=== PATIENT | male | born 1950 | race Caucasian/White ===

== ENCOUNTER 2017-04-19 14:18 | Inpatient (IN) | payer MEDICAID ==
[~2017-04-19] VITALS: Ht 172.7 cm; Wt 71.0 kg
[~2017-04-19 14:18] MED LIST: DIVA500T35 PO; DIVA500T52 PO; ESCI10TA PO; HYDR28.484 TP; OLAN10TA3 PO; PANT40TA25 PO; TRAZ-147 PO
[2017-04-19 14:44] VITALS: BP 141/88
[2017-04-19] MEDS ORDERED: BENZ1TAB10 PO (16:14)
[2017-04-19] MEDS ORDERED: HALO5 PO (16:14)
[2017-04-19] MEDS ORDERED: DIVA500T35 PO (16:14)
[2017-04-19] MEDS ORDERED: TRAZ-144 PO (16:14)
[2017-04-19] MEDS ORDERED: LURA40 PO (16:14)
[2017-04-19] MEDS ORDERED: BENZ2TAB10 PO (16:14)
[2017-04-19] MEDS: HALOPERIDOL 5 MG TABLET PO PRN (16:25)
[2017-04-19] MEDS: LORazepam 1 MG TABLET PO PRN (16:25)
[2017-04-19 16:36] VITALS: BP 143/82
[2017-04-19] MEDS: ZOLPIDEM TARTRATE 10 MG TABLET PO PRN (20:15)
[2017-04-19] MEDS: NICOTINE 21 MG/24 HOUR PATCH TD SCH (20:15)
[2017-04-20] VITALS (7 sets, daily range): BP systolic 114–144; BP diastolic 62–91
[2017-04-20] MEDS: HALOPERIDOL 5 MG TABLET PO PRN (00:02)
[2017-04-20] MEDS: LORazepam 1 MG TABLET PO PRN ×2 (00:02→08:24)
[2017-04-20] MEDS: DIVALPROEX SODIUM 500 MG DR TABLET PO SCH ×2 (08:23→20:57)
[2017-04-20] MEDS: HALOPERIDOL 5 MG TABLET PO SCH (08:24)
[2017-04-20] MEDS: BENZTROPINE MESYLATE 1 MG TABLET PO SCH (08:24)
[2017-04-20] MEDS: NICOTINE 21 MG/24 HOUR PATCH TD SCH (08:24)
[2017-04-20] MEDS: PANTOPRAZOLE SODIUM 40 MG DR TABLET PO SCH (08:24)
[2017-04-20] MEDS: HYDROCORTISONE 1% 30 GM OINTMENT TP SCH ×2 (08:24→16:46)
[2017-04-20] MEDS ORDERED: IBUPROFEN 600 MG TABLET PO PRN (16:45)
[2017-04-20] MEDS: ACETAMINOPHEN 325 MG TABLET PO PRN (17:05)
[2017-04-20] MEDS: TraZODone HCL 50 MG TABLET PO SCH (20:57)
[2017-04-20] MEDS: HALOPERIDOL 10 MG TABLET PO SCH (20:58)
[2017-04-20] MEDS: ZOLPIDEM TARTRATE 10 MG TABLET PO PRN (20:58)
[2017-04-20] MEDS: BENZTROPINE MESYLATE 2 MG TABLET PO SCH (20:58)
[2017-04-21 01:53] VITALS: BP 138/84
[2017-04-21] MEDS: LORazepam 1 MG TABLET PO PRN ×4 (01:53→17:23)
[2017-04-21] MEDS: HALOPERIDOL 5 MG TABLET PO PRN ×2 (01:53→12:51)
[2017-04-21] MEDS: HALOPERIDOL 5 MG TABLET PO SCH (08:12)
[2017-04-21] MEDS: BENZTROPINE MESYLATE 1 MG TABLET PO SCH (08:12)
[2017-04-21] MEDS: PANTOPRAZOLE SODIUM 40 MG DR TABLET PO SCH (08:12)
[2017-04-21] MEDS: HYDROCORTISONE 1% 30 GM OINTMENT TP SCH ×2 (08:12→17:03)
[2017-04-21] MEDS: NICOTINE 21 MG/24 HOUR PATCH TD SCH (08:12)
[2017-04-21] MEDS: DIVALPROEX SODIUM 500 MG DR TABLET PO SCH ×2 (08:12→20:28)
[2017-04-21 08:54] VITALS: BP 140/78
[2017-04-21 16:26] VITALS: BP 133/69
[2017-04-21] MEDS: BENZTROPINE MESYLATE 2 MG TABLET PO SCH (20:28)
[2017-04-21] MEDS: ZOLPIDEM TARTRATE 10 MG TABLET PO PRN (20:28)
[2017-04-21] MEDS: TraZODone HCL 50 MG TABLET PO SCH (20:28)
[2017-04-21] MEDS: HALOPERIDOL 10 MG TABLET PO SCH (20:28)
[2017-04-22 02:40] VITALS: BP 118/68
[2017-04-22] MEDS: LORazepam 1 MG TABLET PO PRN (02:52)
[2017-04-22] MEDS: HALOPERIDOL 5 MG TABLET PO PRN (02:52)
[2017-04-22] MEDS: ACETAMINOPHEN 325 MG TABLET PO PRN (02:53)
[2017-04-22 08:05] VITALS: BP 128/67
[2017-04-22 08:25] LABS: BASOPHILS # (AUTO) 0.02 K/uL (0.00-0.20); BASOPHILS % (AUTO) 0.4 % (0.0-2.0); EOSINOPHILS # (AUTO) 0.39 K/uL (0.00-0.70); EOSINOPHILS % (AUTO) 6.16 % (1.0-6.0); HEMATOCRIT 43.9 % (41-53); HEMOGLOBIN 14.5 g/dL (13.5-17.5); LYMPHOCYTES % (AUTO) 31.6 % (22.0-44.0); MEAN CORPUSCULAR HEMOGLOBIN 30.5 pg (26.0-34.0); MEAN CORPUSCULAR HGB CONC 32.9 G/dL (31.0-37.0); MEAN CORPUSCULAR VOLUME 93 fL (80-100); MONOCYTES # (AUTO) 0.6 K/uL (0.1-1.0); MONOCYTES % (AUTO) 9.4 % (2.0-9.0); NEUTROPHILS # (AUTO) 3.3 K/uL (1.8-7.7); NEUTROPHILS % (AUTO) 52.5 % (40.0-70.0); PLATELET COUNT (AUTO) 169 K/uL (150-450); RED BLOOD CELL COUNT(AUTO) 4.74 MIL/uL (4.50-5.90); RED CELL DISTRIBUTION WIDTH 13.5 % (11.5-14.5); WHITE BLOOD COUNT (AUTO) 6.4 K/uL (4.5-11.0)
[2017-04-22 08:46] LABS: ALANINE AMINOTRANSFERASE 16 U/L (12-78); ALBUMIN 3.3 g/dL (3.4-5.0); ANION GAP 9 mmol/L (8-16); ASPARTATE AMINOTRANSFERASE 13 U/L (15-37); BILIRUBIN,TOTAL 0.3 mg/dL (0.1-1.0); CARBON DIOXIDE 26 mmol/L (22-29); CHLORIDE 104 mmol/L (98-107); CREATININE 0.78 mg/dL (0.60-1.30); GLOMERULAR FILTR. RATE CALC > 60 mL/min (>60); POTASSIUM 4.3 mmol/L (3.5-5.1); SODIUM SERUM 139 mmol/L (136-145); UREA NITROGEN, BLOOD 14 mg/dL (7-18)
[2017-04-22] MEDS: NICOTINE 21 MG/24 HOUR PATCH TD SCH (09:10)
[2017-04-22] MEDS: DIVALPROEX SODIUM 500 MG DR TABLET PO SCH (09:10)
[2017-04-22] MEDS: HYDROCORTISONE 1% 30 GM OINTMENT TP SCH (09:10)
[2017-04-22] MEDS: HALOPERIDOL 5 MG TABLET PO SCH (09:10)
[2017-04-22] MEDS: BENZTROPINE MESYLATE 1 MG TABLET PO SCH (09:10)
[2017-04-22] MEDS: PANTOPRAZOLE SODIUM 40 MG DR TABLET PO SCH (09:10)
[2017-04-22] MEDS ORDERED: MUPI1OIN4 NS (12:04)
[2017-04-22] MEDS ORDERED: MUPIROCIN CALCIUM 2% 22 GM OINTMENT NASAL SCH (17:00)
== END 2017-04-22 13:30 | disposition home or self-care (01) | DRG 750 ==
LOC: B3A 15:35
PROVIDERS: ADMIT Psychiatry & Neurology Psychiatry; ATTEND Psychiatry & Neurology Child & Adolescent Psychiatry
DX: F25.1 Schizoaffective disorder, depressive type (principal); R45.851 Suicidal ideations; I10 Essential (primary) hypertension; H91.90 Unspecified hearing loss, unspecified ear; L40.9 Psoriasis, unspecified; I34.1 Nonrheumatic mitral (valve) prolapse; B19.20 Unspecified viral hepatitis C without hepatic coma; K21.9 Gastro-esophageal reflux disease without esophagitis; R32 Unspecified urinary incontinence; Z79.899 Other long term (current) drug therapy; Z88.8 Allergy status to other drugs, medicaments and biological substances; Z91.5 Personal history of self-harm
CPT/HCPCS: 87081

== ENCOUNTER 2017-05-05 11:53 | Inpatient (IN) | payer MEDICAID, OTHER ==
[~2017-05-05] VITALS: Ht 175.3 cm; Wt 71.6 kg
[~2017-05-05 11:53] MED LIST changes: +BENZ1TAB10 PO; +BENZ2TAB10 PO; -DIVA500T52 PO; -ESCI10TA PO; +HALO5 PO; -HYDR28.484 TP; +MUPI1OIN4 NS; -OLAN10TA3 PO; -PANT40TA25 PO; +TRAZ-144 PO; -TRAZ-147 PO
[2017-05-05] MEDS ORDERED: ZOLPIDEM TARTRATE 10 MG TABLET PO PRN (12:30)
[2017-05-05 12:31] LABS: BASOPHILS % (AUTO) 0.4 % (0.0-2.0); EOSINOPHILS % (AUTO) 4.6 % (1.0-6.0); HEMATOCRIT 39.4 % (41-53); HEMOGLOBIN 13.8 g/dL (13.5-17.5); LYMPHOCYTES # (AUTO) 1.7 K/uL (1.0-4.8); LYMPHOCYTES % (AUTO) 24.2 % (22.0-44.0); MEAN CORPUSCULAR HEMOGLOBIN 31.4 pg (26.0-34.0); MEAN CORPUSCULAR VOLUME 90 fL (80-100); MONOCYTES # (AUTO) 0.6 K/uL (0.1-1.0); MONOCYTES % (AUTO) 8.4 % (2.0-9.0); NEUTROPHILS # (AUTO) 4.4 K/uL (1.8-7.7); NEUTROPHILS % (AUTO) 62.4 % (40.0-70.0); PLATELET COUNT (AUTO) 164 K/uL (150-450); RED CELL DISTRIBUTION WIDTH 13.2 % (11.5-14.5)
[2017-05-05 12:40] LABS: ANION GAP 9 mmol/L (8-16); CALCIUM, TOTAL 8.8 mg/dL (8.8-10.5); CARBON DIOXIDE 25 mmol/L (22-29); CHLORIDE 100 mmol/L (98-107); CREATININE 0.94 mg/dL (0.60-1.30); GLOMERULAR FILTR. RATE CALC > 60 mL/min (>60); POTASSIUM 4.1 mmol/L (3.5-5.1); SODIUM SERUM 134 mmol/L (136-145); UREA NITROGEN, BLOOD 12 mg/dL (7-18)
[2017-05-05 12:48] LABS: ALANINE AMINOTRANSFERASE 18 U/L (12-78); ALBUMIN 3.3 g/dL (3.4-5.0); ASPARTATE AMINOTRANSFERASE 13 U/L (15-37); BILIRUBIN,TOTAL 0.3 mg/dL (0.1-1.0); TOTAL PROTEIN, SERUM 7.2 g/dL (6.4-8.2); VALPROIC ACID 64 mcg/mL (50-100)
[2017-05-05] MEDS: LORazepam 2 MG TABLET PO PRN (13:05)
[2017-05-05 14:34] VITALS: BP 147/83
[2017-05-05] MEDS: NICOTINE 21 MG/24 HOUR PATCH TD SCH (16:43)
[2017-05-05] MEDS: HALOPERIDOL 5 MG TABLET PO PRN (17:35)
[2017-05-05] MEDS: BENZTROPINE MESYLATE 2 MG TABLET PO SCH (20:02)
[2017-05-05] MEDS: DIVALPROEX SODIUM 500 MG DR TABLET PO SCH (20:02)
[2017-05-05] MEDS: TraZODone HCL 50 MG TABLET PO SCH (20:03)
[2017-05-05] MEDS: HALOPERIDOL 10 MG TABLET PO SCH (20:04)
[2017-05-05 20:11] VITALS: BP 120/64
[2017-05-06] MEDS: DIVALPROEX SODIUM 500 MG DR TABLET PO SCH ×2 (08:20→22:03)
[2017-05-06] MEDS: BENZTROPINE MESYLATE 1 MG TABLET PO SCH (08:20)
[2017-05-06] MEDS: HALOPERIDOL 5 MG TABLET PO SCH (08:20)
[2017-05-06] MEDS: NICOTINE 21 MG/24 HOUR PATCH TD SCH (08:21)
[2017-05-06] MEDS: LORazepam 2 MG TABLET PO PRN ×2 (08:21→14:15)
[2017-05-06 10:41] VITALS: BP 127/71
[2017-05-06] MEDS ORDERED: DiphenhydrAMINE HCL 50 MG/ML VIAL IM ONE (15:15)
[2017-05-06] MEDS ORDERED: LORazepam 2 MG/ML VIAL IM ONE (15:15)
[2017-05-06] MEDS ORDERED: HALOPERIDOL LACTATE 5 MG/ML VIAL IM ONE (15:15)
[2017-05-06 15:19] VITALS: BP 137/91
[2017-05-06] MEDS: BENZTROPINE MESYLATE 2 MG TABLET PO SCH (22:03)
[2017-05-06] MEDS: TraZODone HCL 50 MG TABLET PO SCH (22:03)
[2017-05-06] MEDS: HALOPERIDOL 10 MG TABLET PO SCH (22:03)
[2017-05-07] MEDS: HALOPERIDOL 5 MG TABLET PO SCH (08:31)
[2017-05-07] MEDS: BENZTROPINE MESYLATE 1 MG TABLET PO SCH (08:31)
[2017-05-07] MEDS: NICOTINE 21 MG/24 HOUR PATCH TD SCH (08:32)
[2017-05-07] MEDS: DIVALPROEX SODIUM 500 MG DR TABLET PO SCH ×2 (08:32→21:22)
[2017-05-07] MEDS: LORazepam 2 MG TABLET PO PRN ×2 (08:33→16:27)
[2017-05-07 08:40] VITALS: BP 149/69
[2017-05-07] MEDS ORDERED: ACETAMINOPHEN 325 MG TABLET ONE (11:43)
[2017-05-07] MEDS ORDERED: ACETAMINOPHEN 325 MG TABLET PO PRN (13:00)
[2017-05-07] MEDS: HALOPERIDOL 5 MG TABLET PO PRN (16:27)
[2017-05-07 16:41] VITALS: BP 143/66
[2017-05-07] MEDS: HALOPERIDOL 10 MG TABLET PO SCH (21:22)
[2017-05-07] MEDS: TraZODone HCL 50 MG TABLET PO SCH (21:22)
[2017-05-07] MEDS: BENZTROPINE MESYLATE 2 MG TABLET PO SCH (21:29)
[2017-05-08 06:16] VITALS: BP 138/79
[2017-05-08 08:30] VITALS: BP 146/86
[2017-05-08] MEDS: BENZTROPINE MESYLATE 1 MG TABLET PO SCH (09:41)
[2017-05-08] MEDS: DIVALPROEX SODIUM 500 MG DR TABLET PO SCH (09:41)
[2017-05-08] MEDS: HALOPERIDOL 5 MG TABLET PO SCH (09:41)
[2017-05-08] MEDS: NICOTINE 21 MG/24 HOUR PATCH TD SCH (09:42)
[2017-05-08] MEDS: LORazepam 2 MG TABLET PO PRN (09:43)
[2017-05-08 16:39] VITALS: BP 155/88
[2017-05-08] MEDS ORDERED: HALO5 PO ×2 (17:11)
== END 2017-05-08 18:40 | disposition home or self-care (01) | DRG 750 ==
LOC: EMS 11:55 → AHU 13:26 → 3EI 05-06 16:00
PROVIDERS: ADMIT Psychiatry & Neurology Psychiatry; ATTEND Psychiatry & Neurology Child & Adolescent Psychiatry
DX: F25.1 Schizoaffective disorder, depressive type (principal); R45.851 Suicidal ideations; I10 Essential (primary) hypertension; B19.20 Unspecified viral hepatitis C without hepatic coma; F17.200 Nicotine dependence, unspecified, uncomplicated; F41.9 Anxiety disorder, unspecified; K21.9 Gastro-esophageal reflux disease without esophagitis; Z88.8 Allergy status to other drugs, medicaments and biological substances
CPT/HCPCS: 87081; 96372; 99285; G0480; J1200; J1630; J2060

== ENCOUNTER 2017-05-22 15:28 | Emergency (ER) | payer MEDICAID, OTHER ==
[~2017-05-22] VITALS: Ht 175.3 cm; Wt 72.7 kg
[~2017-05-22 15:28] MED LIST changes: -MUPI1OIN4 NS
[2017-05-22 17:23] LABS: BASOPHILS # (AUTO) 0.06 K/uL (0.00-0.20); BASOPHILS % (AUTO) 0.8 % (0.0-2.0); EOSINOPHILS # (AUTO) 0.44 K/uL (0.00-0.70); EOSINOPHILS % (AUTO) 6.04 % (1.0-6.0); HEMATOCRIT 42.3 % (41-53); HEMOGLOBIN 14.1 g/dL (13.5-17.5); LYMPHOCYTES # (AUTO) 2.2 K/uL (1.0-4.8); LYMPHOCYTES % (AUTO) 29.8 % (22.0-44.0); MEAN CORPUSCULAR HEMOGLOBIN 30.9 pg (26.0-34.0); MEAN CORPUSCULAR HGB CONC 33.3 G/dL (31.0-37.0); MEAN CORPUSCULAR VOLUME 93 fL (80-100); MONOCYTES # (AUTO) 0.5 K/uL (0.1-1.0); MONOCYTES % (AUTO) 7.1 % (2.0-9.0); NEUTROPHILS # (AUTO) 4.1 K/uL (1.8-7.7); NEUTROPHILS % (AUTO) 56.3 % (40.0-70.0); PLATELET COUNT (AUTO) 160 K/uL (150-450); RED BLOOD CELL COUNT(AUTO) 4.56 MIL/uL (4.50-5.90); RED CELL DISTRIBUTION WIDTH 13.7 % (11.5-14.5)
[2017-05-22 17:40] LABS: ANION GAP 7 mmol/L (8-16); CALCIUM, TOTAL 8.9 mg/dL (8.8-10.5); CARBON DIOXIDE 25 mmol/L (22-29); CHLORIDE 100 mmol/L (98-107); CREATININE 0.82 mg/dL (0.60-1.30); GLOMERULAR FILTR. RATE CALC > 60 mL/min (>60); GLUCOSE,RANDOM 78 mg/dL (70-110); POTASSIUM 3.8 mmol/L (3.5-5.1); SODIUM SERUM 132 mmol/L (136-145); UREA NITROGEN, BLOOD 8 mg/dL (7-18)
[2017-05-22 17:41] LABS: AMPHET/METH SCREEN,URINE NEGATIVE (NEGATIVE); BARBITURATE SCREEN, URINE NEGATIVE (NEGATIVE); BENZODIAZEPINES SCREEN,URINE NEGATIVE (NEGATIVE); CANNABINOID SCREEN,URINE NEGATIVE (NEGATIVE); COCAINE SCREEN,URINE NEGATIVE (NEGATIVE); METHADONE SCREEN, URINE NEGATIVE (NEGATIVE); OPIATE SCREEN,URINE NEGATIVE (NEGATIVE)
[2017-05-22 17:44] LABS: PHENCYCLIDINE SCREEN,URINE NEGATIVE (NEGATIVE)
[2017-05-22 17:46] LABS: ALANINE AMINOTRANSFERASE 17 U/L (12-78); ALBUMIN 3.5 g/dL (3.4-5.0); ALKALINE PHOSPHATASE 48 U/L (46-116); ASPARTATE AMINOTRANSFERASE 16 U/L (15-37); BILIRUBIN,TOTAL 0.3 mg/dL (0.1-1.0); TOTAL PROTEIN, SERUM 7.5 g/dL (6.4-8.2)
[2017-05-22 18:52] LABS: ACETAMINOPHEN < 2 mcg/mL (10-30)
[2017-05-22 19:20] VITALS: BP 151/64
[2017-05-22] MEDS ORDERED: ACETAMINOPHEN 500 MG TABLET PO ONE (19:30)
== END 2017-05-22 20:07 | disposition home or self-care (01) ==
LOC: EMS 15:36
DX: F20.9 Schizophrenia, unspecified (principal); R45.851 Suicidal ideations; K21.9 Gastro-esophageal reflux disease without esophagitis; I10 Essential (primary) hypertension; L40.9 Psoriasis, unspecified; F17.210 Nicotine dependence, cigarettes, uncomplicated
CPT/HCPCS: 36415; 80053; 80307; 85025; 99285; G0480 ×2; G0481

== ENCOUNTER 2017-06-01 10:18 | Emergency (ER) | payer OTHER ==
[~2017-06-01] VITALS: Ht 175.3 cm; Wt 71.8 kg
[2017-06-01 10:36] VITALS: BP 138/82
[2017-06-01 10:57] LABS: BASOPHILS % (AUTO) 0.4 % (0.0-2.0); EOSINOPHILS % (AUTO) 4.9 % (1.0-6.0); HEMATOCRIT 40.1 % (41-53); LYMPHOCYTES # (AUTO) 1.6 K/uL (1.0-4.8); LYMPHOCYTES % (AUTO) 24.8 % (22.0-44.0); MEAN CORPUSCULAR HEMOGLOBIN 31.5 pg (26.0-34.0); MEAN CORPUSCULAR HGB CONC 34.9 G/dL (31.0-37.0); MEAN CORPUSCULAR VOLUME 90 fL (80-100); MONOCYTES # (AUTO) 0.4 K/uL (0.1-1.0); MONOCYTES % (AUTO) 6.1 % (2.0-9.0); NEUTROPHILS % (AUTO) 63.8 % (40.0-70.0); PLATELET COUNT (AUTO) 156 K/uL (150-450); RED BLOOD CELL COUNT(AUTO) 4.44 MIL/uL (4.50-5.90); RED CELL DISTRIBUTION WIDTH 13.3 % (11.5-14.5)
[2017-06-01 11:13] LABS: AMPHET/METH SCREEN,URINE NEGATIVE (NEGATIVE); BARBITURATE SCREEN, URINE NEGATIVE (NEGATIVE); BENZODIAZEPINES SCREEN,URINE NEGATIVE (NEGATIVE); CANNABINOID SCREEN,URINE NEGATIVE (NEGATIVE); COCAINE SCREEN,URINE NEGATIVE (NEGATIVE); METHADONE SCREEN, URINE NEGATIVE (NEGATIVE); OPIATE SCREEN,URINE NEGATIVE (NEGATIVE)
[2017-06-01 11:14] LABS: PHENCYCLIDINE SCREEN,URINE NEGATIVE (NEGATIVE)
[2017-06-01 11:15] LABS: ALANINE AMINOTRANSFERASE 18 U/L (12-78); ALBUMIN 3.4 g/dL (3.4-5.0); ALKALINE PHOSPHATASE 56 U/L (46-116); ASPARTATE AMINOTRANSFERASE 16 U/L (15-37); BILIRUBIN,TOTAL 0.3 mg/dL (0.1-1.0); CALCIUM, TOTAL 8.7 mg/dL (8.8-10.5); CREATININE 0.86 mg/dL (0.60-1.30); GLOMERULAR FILTR. RATE CALC > 60 mL/min (>60); GLUCOSE,RANDOM 89 mg/dL (70-110); TOTAL PROTEIN, SERUM 7.4 g/dL (6.4-8.2); UREA NITROGEN, BLOOD 8 mg/dL (7-18); VALPROIC ACID 37 mcg/mL (50-100)
[2017-06-01 11:23] LABS: ANION GAP 10 mmol/L (8-16); CARBON DIOXIDE 25 mmol/L (22-29); CHLORIDE 98 mmol/L (98-107); SODIUM SERUM 133 mmol/L (136-145)
[2017-06-01] MEDS ORDERED: ACETAMINOPHEN 500 MG TABLET PO ONE (12:00)
[2017-06-01] MEDS ORDERED: HALO10 PO (12:04)
== END 2017-06-01 12:19 | disposition home or self-care (01) ==
LOC: EMS 10:20
DX: F20.9 Schizophrenia, unspecified (principal); F31.9 Bipolar disorder, unspecified; F10.20 Alcohol dependence, uncomplicated; Y90.0 Blood alcohol level of less than 20 mg/100 ml; K21.9 Gastro-esophageal reflux disease without esophagitis; F17.210 Nicotine dependence, cigarettes, uncomplicated; Z79.899 Other long term (current) drug therapy
CPT/HCPCS: 36415; 80053; 80164; 80307; 85025; 99285; G0480

== ENCOUNTER 2017-07-05 13:42 | Emergency (ER) | payer OTHER ==
[~2017-07-05] VITALS: Ht 172.7 cm; Wt 71.8 kg
[~2017-07-05 13:42] MED LIST changes: +HALO10 PO
[2017-07-05 17:33] VITALS: BP 144/88
== END 2017-07-05 18:42 | disposition home or self-care (01) ==
LOC: EMS 13:43 → EEVIPCON 13:43 → EMS 18:42
DX: F20.9 Schizophrenia, unspecified (principal); R45.851 Suicidal ideations; I10 Essential (primary) hypertension; K21.9 Gastro-esophageal reflux disease without esophagitis; F17.210 Nicotine dependence, cigarettes, uncomplicated; Z88.8 Allergy status to other drugs, medicaments and biological substances
CPT/HCPCS: 99285

== ENCOUNTER 2017-11-28 17:00 | Inpatient (IN) | payer MEDICARE, MEDICAID ==
[~2017-11-28] VITALS: Ht 175.3 cm; Wt 64.5 kg
[~2017-11-28 17:00] MED LIST changes: +DIVA-78 PO; -DIVA500T35 PO; -HALO5 PO; +HALO5TAB2 PO; -TRAZ-144 PO; +TRAZ-219 PO
[2017-11-28] MEDS ORDERED: ZOLPIDEM TARTRATE 10 MG TABLET PO PRN (18:00)
[2017-11-28] MEDS ORDERED: HALOPERIDOL 5 MG TABLET PO PRN (18:00)
[2017-11-28 19:55] VITALS: BP 139/85
[2017-11-28] MEDS ORDERED: ACETAMINOPHEN 325 MG TABLET PO PRN (20:30)
[2017-11-28] MEDS ORDERED: DOCUSATE SODIUM 100 MG CAPSULE PO PRN (20:30)
[2017-11-28] MEDS ORDERED: IBUPROFEN 400 MG TABLET PO PRN (20:30)
[2017-11-29 02:03] VITALS: BP 162/95
[2017-11-29] MEDS: LORazepam 2 MG TABLET PO PRN (02:13)
[2017-11-29 06:33] LABS: BASOPHILS % (AUTO) 0.6 % (0.0-2.0); HEMATOCRIT 41.6 % (41-53); HEMOGLOBIN 14.5 g/dL (13.5-17.5); LYMPHOCYTES % (AUTO) 28.4 % (22.0-44.0); MEAN CORPUSCULAR HEMOGLOBIN 31.3 pg (26.0-34.0); MEAN CORPUSCULAR HGB CONC 34.9 G/dL (31.0-37.0); MEAN CORPUSCULAR VOLUME 90 fL (80-100); MONOCYTES # (AUTO) 0.6 K/uL (0.1-1.0); MONOCYTES % (AUTO) 9.2 % (2.0-9.0); NEUTROPHILS # (AUTO) 3.9 K/uL (1.8-7.7); NEUTROPHILS % (AUTO) 55.8 % (40.0-70.0); PLATELET COUNT (AUTO) 201 K/uL (150-450); RED BLOOD CELL COUNT(AUTO) 4.63 MIL/uL (4.50-5.90); RED CELL DISTRIBUTION WIDTH 13.9 % (11.5-14.5)
[2017-11-29 06:55] LABS: ALANINE AMINOTRANSFERASE 20 U/L (12-78); ALBUMIN 3.6 g/dL (3.4-5.0); ALKALINE PHOSPHATASE 54 U/L (46-116); ANION GAP 8 mmol/L (8-16); ASPARTATE AMINOTRANSFERASE 16 U/L (15-37); BILIRUBIN,TOTAL 0.3 mg/dL (0.1-1.0); CALCIUM, TOTAL 8.7 mg/dL (8.8-10.5); CARBON DIOXIDE 28 mmol/L (22-29); CHLORIDE 100 mmol/L (98-107); CHOL/HDL RATIO 2.8 (4.2-7.3); CHOLESTEROL 146 mg/dL (131-200); GLOMERULAR FILTR. RATE CALC > 60 mL/min (>60); GLUCOSE,RANDOM 86 mg/dL (70-110); HDL CHOLESTEROL 52 mg/dL (40-60); LDL CHOL (CALC.) 83 mg/dL (0-130); POTASSIUM 4.4 mmol/L (3.5-5.1); SODIUM SERUM 136 mmol/L (136-145); TOTAL PROTEIN, SERUM 7.5 g/dL (6.4-8.2); TRIGLYCERIDES 57 mg/dL (15-150); UREA NITROGEN, BLOOD 21 mg/dL (7-18)
[2017-11-29 08:46] VITALS: BP 159/98
[2017-11-29] MEDS ORDERED: NICOTINE 21 MG/24 HOUR PATCH TD SCH (09:00)
[2017-11-29] MEDS ORDERED: CloNIDine HCL 0.1 MG TABLET PO PRN (10:45)
[2017-11-29] MEDS ORDERED: DOCUSATE SODIUM 100 MG CAPSULE PO PRN (10:45)
[2017-11-29] MEDS ORDERED: PETROLATUM,WHITE 71 GM JELLY TP PRN (10:45)
[2017-11-29] MEDS ORDERED: ALBUTEROL SULFATE HFA 90 MCG/PUFF 8 GM INHALER IH PRN (10:45)
[2017-11-29] MEDS ORDERED: ONDANSETRON HCL 4 MG TABLET PO PRN (10:45)
[2017-11-29] MEDS ORDERED: LOPERAMIDE HCL 2 MG CAPSULE PO PRN (10:45)
[2017-11-29] MEDS ORDERED: MAG HYDROX/AL HYDROX/SIMETH ES 30 ML SUSPENSION UDCUP PO PRN (10:45)
[2017-11-29] MEDS ORDERED: ACETAMINOPHEN 325 MG TABLET PO PRN (10:45)
[2017-11-29] MEDS: HYDROCORTISONE 1% 30 GM OINTMENT TP SCH ×2 (10:45→20:06)
[2017-11-29] MEDS ORDERED: MAGNESIUM HYDROXIDE SUSPENSION 30 ML UDCUP PO PRN (10:45)
[2017-11-29] MEDS: AmLODIPine BESYLATE 5 MG TABLET PO SCH (11:46)
[2017-11-29] MEDS: IBUPROFEN 400 MG TABLET PO PRN (12:48)
[2017-11-29] MEDS: DIVALPROEX SODIUM 500 MG ER TABLET PO SCH (16:16)
[2017-11-29] MEDS: BENZTROPINE MESYLATE 2 MG TABLET PO SCH (16:16)
[2017-11-29 19:08] VITALS: BP 146/84
[2017-11-29] MEDS: HALOPERIDOL 10 MG TABLET PO SCH (20:06)
[2017-11-29] MEDS: TraZODone HCL 150 MG TABLET PO SCH (20:06)
[2017-11-30 08:30] VITALS: BP 134/82
[2017-11-30] MEDS: NICOTINE 14 MG/24 HOUR PATCH TD SCH (08:56)
[2017-11-30] MEDS: AmLODIPine BESYLATE 5 MG TABLET PO SCH (08:57)
[2017-11-30] MEDS: BENZTROPINE MESYLATE 2 MG TABLET PO SCH ×2 (08:57→16:00)
[2017-11-30] MEDS: HYDROCORTISONE 1% 30 GM OINTMENT TP SCH ×2 (08:57→16:00)
[2017-11-30] MEDS: DIVALPROEX SODIUM 500 MG ER TABLET PO SCH ×2 (08:57→16:00)
[2017-11-30] MEDS: HALOPERIDOL 5 MG TABLET PO SCH (08:57)
[2017-11-30] MEDS: LORazepam 2 MG TABLET PO PRN ×2 (11:03→17:11)
[2017-11-30 19:36] VITALS: BP 144/76
[2017-11-30] MEDS: HALOPERIDOL 10 MG TABLET PO SCH (20:23)
[2017-11-30] MEDS: TraZODone HCL 150 MG TABLET PO SCH (20:23)
[2017-12-01 08:45] VITALS: BP 144/69
[2017-12-01] MEDS: DIVALPROEX SODIUM 500 MG ER TABLET PO SCH ×2 (09:54→16:11)
[2017-12-01] MEDS: HALOPERIDOL 5 MG TABLET PO SCH (09:55)
[2017-12-01] MEDS: BENZTROPINE MESYLATE 2 MG TABLET PO SCH ×2 (09:55→16:11)
[2017-12-01] MEDS: AmLODIPine BESYLATE 5 MG TABLET PO SCH (09:55)
[2017-12-01] MEDS: HYDROCORTISONE 1% 30 GM OINTMENT TP SCH ×2 (09:56→16:11)
[2017-12-01] MEDS: NICOTINE 14 MG/24 HOUR PATCH TD SCH (09:57)
[2017-12-01] MEDS: LORazepam 2 MG TABLET PO PRN (13:00)
[2017-12-01 17:00] VITALS: BP 140/68
[2017-12-01] MEDS: TraZODone HCL 150 MG TABLET PO SCH (20:10)
[2017-12-01] MEDS: HALOPERIDOL 10 MG TABLET PO SCH (20:10)
[2017-12-02 09:00] VITALS: BP 137/78
[2017-12-02] MEDS: HALOPERIDOL 5 MG TABLET PO SCH (09:02)
[2017-12-02] MEDS: DIVALPROEX SODIUM 500 MG ER TABLET PO SCH ×2 (09:02→16:54)
[2017-12-02] MEDS: NICOTINE 14 MG/24 HOUR PATCH TD SCH (09:03)
[2017-12-02] MEDS: HYDROCORTISONE 1% 30 GM OINTMENT TP SCH ×2 (09:03→16:54)
[2017-12-02] MEDS: AmLODIPine BESYLATE 5 MG TABLET PO SCH (09:03)
[2017-12-02] MEDS: BENZTROPINE MESYLATE 2 MG TABLET PO SCH ×2 (09:04→16:54)
[2017-12-02 14:27] VITALS: BP 143/84
[2017-12-02] MEDS: IBUPROFEN 400 MG TABLET PO PRN (14:27)
[2017-12-02 16:40] VITALS: BP 156/108
[2017-12-02] MEDS: TraZODone HCL 150 MG TABLET PO SCH (20:29)
[2017-12-02] MEDS: HALOPERIDOL 10 MG TABLET PO SCH (20:30)
[2017-12-03] MEDS: HALOPERIDOL 5 MG TABLET PO SCH (08:46)
[2017-12-03] MEDS: DIVALPROEX SODIUM 500 MG ER TABLET PO SCH (08:46)
[2017-12-03] MEDS: AmLODIPine BESYLATE 5 MG TABLET PO SCH (08:46)
[2017-12-03] MEDS: BENZTROPINE MESYLATE 2 MG TABLET PO SCH (08:46)
[2017-12-03] MEDS: NICOTINE 14 MG/24 HOUR PATCH TD SCH (08:47)
[2017-12-03] MEDS: HYDROCORTISONE 1% 30 GM OINTMENT TP SCH (08:47)
[2017-12-03 08:49] VITALS: BP 138/73
[2017-12-03] MEDS ORDERED: TRAZ150 PO (10:07)
[2017-12-03] MEDS ORDERED: AMLO-511 PO (10:13)
[2017-12-03] MEDS ORDERED: HYDR28.45 TP (10:14)
== END 2017-12-03 11:55 | disposition home or self-care (01) | DRG 885 ==
LOC: 3EX 17:00
PROVIDERS: ADMIT Psychiatry & Neurology Psychiatry; ATTEND Psychiatry & Neurology Psychiatry
DX: F20.0 Paranoid schizophrenia (principal); R45.851 Suicidal ideations; I10 Essential (primary) hypertension; K21.9 Gastro-esophageal reflux disease without esophagitis; L40.9 Psoriasis, unspecified; R32 Unspecified urinary incontinence; F17.200 Nicotine dependence, unspecified, uncomplicated; R45.87 Impulsiveness; F10.10 Alcohol abuse, uncomplicated; Y90.9 Presence of alcohol in blood, level not specified; Z91.5 Personal history of self-harm; Z71.6 Tobacco abuse counseling
CPT/HCPCS: 83036; 84443; 87081

== ENCOUNTER 2018-02-08 15:36 | Inpatient (IN) | payer MEDICARE, MEDICAID ==
[~2018-02-08] VITALS: Ht 175.3 cm; Wt 63.2 kg
[~2018-02-08 15:36] MED LIST changes: -BENZ1TAB10 PO; +HYDR28.45 TP; -TRAZ-219 PO; +TRAZ150 PO
[2018-02-08 16:39] LABS: BASOPHILS % (AUTO) 0.6 % (0.0-2.0); EOSINOPHILS % (AUTO) 4.5 % (1.0-6.0); HEMOGLOBIN 13.2 g/dL (13.5-17.5); LYMPHOCYTES # (AUTO) 2.3 K/uL (1.0-4.8); LYMPHOCYTES % (AUTO) 33.3 % (22.0-44.0); MEAN CORPUSCULAR HEMOGLOBIN 31.6 pg (26.0-34.0); MEAN CORPUSCULAR HGB CONC 34.7 G/dL (31.0-37.0); MEAN CORPUSCULAR VOLUME 91 fL (80-100); MONOCYTES # (AUTO) 0.6 K/uL (0.1-1.0); MONOCYTES % (AUTO) 8.9 % (2.0-9.0); NEUTROPHILS # (AUTO) 3.6 K/uL (1.8-7.7); NEUTROPHILS % (AUTO) 52.7 % (40.0-70.0); PLATELET COUNT (AUTO) 184 K/uL (150-450); RED BLOOD CELL COUNT(AUTO) 4.18 MIL/uL (4.50-5.90); RED CELL DISTRIBUTION WIDTH 13.5 % (11.5-14.5)
[2018-02-08 16:48] LABS: ANION GAP 9 mmol/L (8-16); CALCIUM, TOTAL 8.6 mg/dL (8.8-10.5); CARBON DIOXIDE 25 mmol/L (22-29); CHLORIDE 99 mmol/L (98-107); CREATININE 0.71 mg/dL (0.60-1.30); GLOMERULAR FILTR. RATE CALC > 60 mL/min (>60); GLUCOSE,RANDOM 83 mg/dL (70-110); SODIUM SERUM 133 mmol/L (136-145); UREA NITROGEN, BLOOD 8 mg/dL (7-18)
[2018-02-08 16:54] LABS: ALANINE AMINOTRANSFERASE 17 U/L (12-78); ALBUMIN 3.3 g/dL (3.4-5.0); ALKALINE PHOSPHATASE 53 U/L (46-116); ASPARTATE AMINOTRANSFERASE 12 U/L (15-37); BILIRUBIN,TOTAL 0.3 mg/dL (0.1-1.0); VALPROIC ACID 27 mcg/mL (50-100)
[2018-02-08] MEDS ORDERED: HALOPERIDOL 5 MG TABLET PO PRN (19:15)
[2018-02-08] MEDS ORDERED: ACETAMINOPHEN 500 MG TABLET ONE (22:05)
[2018-02-08 23:30] VITALS: BP 141/81
[2018-02-09 00:01] VITALS: BP 157/88
[2018-02-09] MEDS: ZOLPIDEM TARTRATE 10 MG TABLET PO PRN ×2 (00:04→21:36)
[2018-02-09] MEDS: LORazepam 2 MG TABLET PO PRN ×2 (00:05→10:08)
[2018-02-09 09:00] VITALS: BP 130/63
[2018-02-09] MEDS: NICOTINE 14 MG/24 HOUR PATCH TD SCH ×2 (09:00→15:00)
[2018-02-09] MEDS ORDERED: GuaiFENesin/D-METHORPHAN [SUGAR-FREE] 200-20MG/10 ML SYRUP UDCUP PO PRN (11:00)
[2018-02-09] MEDS ORDERED: IBUPROFEN 400 MG TABLET PO PRN (11:00)
[2018-02-09] MEDS ORDERED: PETROLATUM,WHITE 71 GM JELLY TP PRN (11:00)
[2018-02-09] MEDS ORDERED: CloNIDine HCL 0.1 MG TABLET PO PRN (11:00)
[2018-02-09] MEDS ORDERED: ONDANSETRON HCL 4 MG TABLET PO PRN (11:00)
[2018-02-09] MEDS ORDERED: ALBUTEROL SULFATE HFA 90 MCG/PUFF 8 GM INHALER IH PRN (11:00)
[2018-02-09] MEDS ORDERED: NICOTINE 14 MG/24 HOUR PATCH TD PRN (11:00)
[2018-02-09] MEDS ORDERED: DOCUSATE SODIUM 100 MG CAPSULE PO PRN (11:00)
[2018-02-09] MEDS ORDERED: MAG HYDROX/AL HYDROX/SIMETH ES 30 ML SUSPENSION UDCUP PO PRN (11:00)
[2018-02-09] MEDS ORDERED: LOPERAMIDE HCL 2 MG CAPSULE PO PRN (11:00)
[2018-02-09] MEDS: ACETAMINOPHEN 325 MG TABLET PO PRN (15:00)
[2018-02-09] MEDS: HYDROCORTISONE 1% 30 GM CREAM TP SCH (16:41)
[2018-02-09] MEDS: DIVALPROEX SODIUM 500 MG DR TABLET PO SCH (20:24)
[2018-02-09] MEDS ORDERED: HALOPERIDOL 5 MG TABLET PO SCH (21:00)
[2018-02-09] MEDS ORDERED: BENZTROPINE MESYLATE 1 MG TABLET PO SCH (21:00)
[2018-02-10 00:25] VITALS: BP 135/79
[2018-02-10] MEDS: LORazepam 2 MG TABLET PO PRN ×3 (00:29→20:52)
[2018-02-10] MEDS ORDERED: MAGNESIUM CITRATE 300 ML ORAL SOLUTION PO PRN (05:00)
[2018-02-10 07:02] LABS: HEMOGLOBIN A1C 4.7 % (4.5-6.2)
[2018-02-10 07:09] LABS: CHOL/HDL RATIO 2.8 (4.2-7.3)
[2018-02-10 07:29] LABS: THYROID STIMULATING HORMONE 1.37 uIU/mL (0.36-3.74)
[2018-02-10 08:30] VITALS: BP 139/80
[2018-02-10] MEDS: OMEPRAZOLE 20 MG CAPSULE PO SCH (08:55)
[2018-02-10] MEDS: HYDROCORTISONE 1% 30 GM CREAM TP SCH ×2 (08:56→17:02)
[2018-02-10 09:50] VITALS: BP 145/88
[2018-02-10] MEDS: NICOTINE 14 MG/24 HOUR PATCH TD SCH (09:52)
[2018-02-10] MEDS: ACETAMINOPHEN 325 MG TABLET PO PRN (09:59)
[2018-02-10 11:00] VITALS: BP 140/90
[2018-02-10] MEDS: BENZTROPINE MESYLATE 1 MG TABLET PO SCH (20:50)
[2018-02-10] MEDS: HALOPERIDOL 10 MG TABLET PO SCH (20:50)
[2018-02-10] MEDS: DIVALPROEX SODIUM 500 MG DR TABLET PO SCH (20:51)
[2018-02-10] MEDS: TraZODone HCL 150 MG TABLET PO SCH (20:51)
[2018-02-10 23:03] VITALS: BP 133/65
[2018-02-11 00:30] VITALS: BP 139/86
[2018-02-11] MEDS: ZOLPIDEM TARTRATE 10 MG TABLET PO PRN (00:37)
[2018-02-11 08:15] VITALS: BP 116/69
[2018-02-11] MEDS: BENZTROPINE MESYLATE 1 MG TABLET PO SCH ×2 (08:53→20:04)
[2018-02-11] MEDS: HALOPERIDOL 5 MG TABLET PO SCH (08:54)
[2018-02-11] MEDS: OMEPRAZOLE 20 MG CAPSULE PO SCH (08:55)
[2018-02-11] MEDS: HYDROCORTISONE 1% 30 GM CREAM TP SCH ×2 (09:00→17:00)
[2018-02-11] MEDS: NICOTINE 14 MG/24 HOUR PATCH TD SCH (09:00)
[2018-02-11] MEDS: LORazepam 2 MG TABLET PO PRN (14:24)
[2018-02-11] MEDS: ACETAMINOPHEN 325 MG TABLET PO PRN (14:24)
[2018-02-11 16:30] VITALS: BP 134/86
[2018-02-11] MEDS: TraZODone HCL 150 MG TABLET PO SCH (20:04)
[2018-02-11] MEDS: HALOPERIDOL 10 MG TABLET PO SCH (20:04)
[2018-02-11] MEDS: DIVALPROEX SODIUM 500 MG DR TABLET PO SCH (20:04)
[2018-02-11] MEDS: MAGNESIUM HYDROXIDE SUSPENSION 30 ML UDCUP PO PRN (20:51)
[2018-02-12] MEDS: LORazepam 2 MG TABLET PO PRN ×2 (08:00→18:46)
[2018-02-12] MEDS: BENZTROPINE MESYLATE 1 MG TABLET PO SCH ×2 (08:18→20:15)
[2018-02-12] MEDS: HALOPERIDOL 5 MG TABLET PO SCH (08:18)
[2018-02-12] MEDS: OMEPRAZOLE 20 MG CAPSULE PO SCH (08:18)
[2018-02-12] MEDS: NICOTINE 14 MG/24 HOUR PATCH TD SCH (08:18)
[2018-02-12] MEDS: HYDROCORTISONE 1% 30 GM CREAM TP SCH ×2 (08:19→16:38)
[2018-02-12 10:01] VITALS: BP 111/64
[2018-02-12 17:11] VITALS: BP 112/71
[2018-02-12 18:44] VITALS: BP 119/69
[2018-02-12] MEDS: ACETAMINOPHEN 325 MG TABLET PO PRN (18:46)
[2018-02-12 19:44] VITALS: BP 121/70
[2018-02-12] MEDS: DIVALPROEX SODIUM 500 MG DR TABLET PO SCH (20:14)
[2018-02-12] MEDS: TraZODone HCL 150 MG TABLET PO SCH (20:21)
[2018-02-12] MEDS: HALOPERIDOL 10 MG TABLET PO SCH (20:21)
[2018-02-13 06:14] LABS: ANION GAP 2 mmol/L (8-16); CARBON DIOXIDE 31 mmol/L (22-29); CHLORIDE 108 mmol/L (98-107); CREATININE 0.78 mg/dL (0.60-1.30); GLOMERULAR FILTR. RATE CALC > 60 mL/min (>60); GLUCOSE,RANDOM 93 mg/dL (70-110); POTASSIUM 4.2 mmol/L (3.5-5.1); SODIUM SERUM 141 mmol/L (136-145); UREA NITROGEN, BLOOD 22 mg/dL (7-18)
[2018-02-13] MEDS: NICOTINE 14 MG/24 HOUR PATCH TD SCH (08:07)
[2018-02-13] MEDS: BENZTROPINE MESYLATE 1 MG TABLET PO SCH ×2 (08:07→20:47)
[2018-02-13] MEDS: HYDROCORTISONE 1% 30 GM CREAM TP SCH ×2 (08:08→16:11)
[2018-02-13] MEDS: OMEPRAZOLE 20 MG CAPSULE PO SCH (08:08)
[2018-02-13] MEDS: HALOPERIDOL 5 MG TABLET PO SCH (08:08)
[2018-02-13] MEDS: LORazepam 2 MG TABLET PO PRN ×2 (08:12→16:02)
[2018-02-13 08:30] VITALS: BP 159/80
[2018-02-13 16:00] VITALS: BP 146/72
[2018-02-13 20:30] VITALS: BP 132/58
[2018-02-13] MEDS: HALOPERIDOL 10 MG TABLET PO SCH (20:46)
[2018-02-13] MEDS: DIVALPROEX SODIUM 500 MG DR TABLET PO SCH (20:46)
[2018-02-13] MEDS: TraZODone HCL 150 MG TABLET PO SCH (20:47)
[2018-02-14 08:00] VITALS: BP 151/77
[2018-02-14] MEDS: BENZTROPINE MESYLATE 1 MG TABLET PO SCH ×2 (08:28→20:08)
[2018-02-14] MEDS: HALOPERIDOL 5 MG TABLET PO SCH (08:29)
[2018-02-14] MEDS: LORazepam 2 MG TABLET PO PRN (08:29)
[2018-02-14] MEDS: OMEPRAZOLE 20 MG CAPSULE PO SCH (08:29)
[2018-02-14] MEDS: NICOTINE 14 MG/24 HOUR PATCH TD SCH (08:39)
[2018-02-14] MEDS: HYDROCORTISONE 1% 30 GM CREAM TP SCH ×2 (08:39→16:58)
[2018-02-14 16:30] VITALS: BP 142/70
[2018-02-14] MEDS: DIVALPROEX SODIUM 500 MG DR TABLET PO SCH (20:08)
[2018-02-14] MEDS: HALOPERIDOL 10 MG TABLET PO SCH (20:08)
[2018-02-14] MEDS: TraZODone HCL 150 MG TABLET PO SCH (20:08)
[2018-02-15 03:10] VITALS: BP 135/73
[2018-02-15 08:45] VITALS: BP 120/66
[2018-02-15] MEDS: OMEPRAZOLE 20 MG CAPSULE PO SCH (08:53)
[2018-02-15] MEDS: BENZTROPINE MESYLATE 1 MG TABLET PO SCH ×2 (08:53→20:12)
[2018-02-15] MEDS: HALOPERIDOL 5 MG TABLET PO SCH (08:53)
[2018-02-15] MEDS: HYDROCORTISONE 1% 30 GM CREAM TP SCH ×2 (09:01→19:17)
[2018-02-15] MEDS: NICOTINE 14 MG/24 HOUR PATCH TD SCH (09:01)
[2018-02-15] MEDS: LORazepam 2 MG TABLET PO PRN ×2 (11:25→16:52)
[2018-02-15 19:13] VITALS: BP 126/77
[2018-02-15] MEDS: DIVALPROEX SODIUM 500 MG DR TABLET PO SCH (20:11)
[2018-02-15] MEDS: TraZODone HCL 150 MG TABLET PO SCH (20:11)
[2018-02-15] MEDS: HALOPERIDOL 10 MG TABLET PO SCH (20:11)
[2018-02-16] MEDS: LORazepam 2 MG TABLET PO PRN ×2 (00:30→10:38)
[2018-02-16] MEDS: ZOLPIDEM TARTRATE 10 MG TABLET PO PRN ×2 (00:30→21:12)
[2018-02-16] MEDS: OMEPRAZOLE 20 MG CAPSULE PO SCH (08:38)
[2018-02-16] MEDS: BENZTROPINE MESYLATE 1 MG TABLET PO SCH ×2 (08:38→20:26)
[2018-02-16] MEDS: HALOPERIDOL 5 MG TABLET PO SCH (08:38)
[2018-02-16] MEDS: NICOTINE 14 MG/24 HOUR PATCH TD SCH (08:45)
[2018-02-16] MEDS: HYDROCORTISONE 1% 30 GM CREAM TP SCH ×2 (08:46→17:00)
[2018-02-16 18:41] VITALS: BP 114/75
[2018-02-16] MEDS: TraZODone HCL 150 MG TABLET PO SCH (20:26)
[2018-02-16] MEDS: DIVALPROEX SODIUM 500 MG DR TABLET PO SCH (20:26)
[2018-02-16] MEDS: HALOPERIDOL 10 MG TABLET PO SCH (20:26)
[2018-02-17 05:10] VITALS: BP 117/73
[2018-02-17 05:31] VITALS: BP 117/73
[2018-02-17 08:00] VITALS: BP 127/74
[2018-02-17] MEDS: HYDROCORTISONE 1% 30 GM CREAM TP SCH ×2 (09:00→17:06)
[2018-02-17] MEDS: BENZTROPINE MESYLATE 1 MG TABLET PO SCH ×2 (09:04→21:00)
[2018-02-17] MEDS: OMEPRAZOLE 20 MG CAPSULE PO SCH (09:04)
[2018-02-17] MEDS: HALOPERIDOL 5 MG TABLET PO SCH (09:04)
[2018-02-17] MEDS: NICOTINE 14 MG/24 HOUR PATCH TD SCH (09:08)
[2018-02-17] MEDS ORDERED: BENZ1TAB10 PO (11:40)
[2018-02-17 17:09] VITALS: BP 121/74
[2018-02-17] MEDS: LORazepam 1 MG TABLET PO PRN (17:09)
[2018-02-17] MEDS: HALOPERIDOL 10 MG TABLET PO SCH (21:00)
[2018-02-17] MEDS: DIVALPROEX SODIUM 500 MG DR TABLET PO SCH (21:00)
[2018-02-17] MEDS: TraZODone HCL 150 MG TABLET PO SCH (21:00)
[2018-02-18 06:51] VITALS: BP 111/75
[2018-02-18] MEDS: OMEPRAZOLE 20 MG CAPSULE PO SCH (08:55)
[2018-02-18] MEDS: BENZTROPINE MESYLATE 1 MG TABLET PO SCH ×2 (08:55→20:05)
[2018-02-18] MEDS: HALOPERIDOL 5 MG TABLET PO SCH (08:55)
[2018-02-18] MEDS: HYDROCORTISONE 1% 30 GM CREAM TP SCH ×2 (08:56→16:31)
[2018-02-18] MEDS: NICOTINE 14 MG/24 HOUR PATCH TD SCH (08:57)
[2018-02-18 16:01] VITALS: BP 114/65
[2018-02-18] MEDS: DIVALPROEX SODIUM 500 MG DR TABLET PO SCH (20:04)
[2018-02-18] MEDS: TraZODone HCL 150 MG TABLET PO SCH (20:05)
[2018-02-18] MEDS: HALOPERIDOL 10 MG TABLET PO SCH (20:05)
[2018-02-18] MEDS: ZOLPIDEM TARTRATE 10 MG TABLET PO PRN (21:35)
[2018-02-19 00:42] VITALS: BP 139/79
[2018-02-19] MEDS: BENZTROPINE MESYLATE 1 MG TABLET PO SCH ×2 (07:52→20:35)
[2018-02-19] MEDS: HALOPERIDOL 5 MG TABLET PO SCH (07:52)
[2018-02-19] MEDS: OMEPRAZOLE 20 MG CAPSULE PO SCH (07:52)
[2018-02-19] MEDS: NICOTINE 14 MG/24 HOUR PATCH TD SCH (07:53)
[2018-02-19 08:30] VITALS: BP 132/86
[2018-02-19] MEDS: HYDROCORTISONE 1% 30 GM CREAM TP SCH ×2 (10:09→16:30)
[2018-02-19] MEDS: LORazepam 1 MG TABLET PO PRN (10:52)
[2018-02-19 19:59] VITALS: BP 145/55
[2018-02-19] MEDS: TraZODone HCL 150 MG TABLET PO SCH (20:35)
[2018-02-19] MEDS: DIVALPROEX SODIUM 500 MG DR TABLET PO SCH (20:35)
[2018-02-19] MEDS: HALOPERIDOL 10 MG TABLET PO SCH (20:35)
[2018-02-20 08:20] VITALS: BP 157/88
[2018-02-20] MEDS: HALOPERIDOL 5 MG TABLET PO SCH (08:54)
[2018-02-20] MEDS: OMEPRAZOLE 20 MG CAPSULE PO SCH (08:54)
[2018-02-20] MEDS: BENZTROPINE MESYLATE 1 MG TABLET PO SCH ×2 (08:55→20:01)
[2018-02-20] MEDS: NICOTINE 14 MG/24 HOUR PATCH TD SCH (08:55)
[2018-02-20] MEDS: HYDROCORTISONE 1% 30 GM CREAM TP SCH ×2 (08:55→16:32)
[2018-02-20 11:13] VITALS: BP 123/58
[2018-02-20 11:35] LABS: AMPHET/METH SCREEN,URINE NEGATIVE (NEGATIVE); BARBITURATE SCREEN, URINE NEGATIVE (NEGATIVE); BENZODIAZEPINES SCREEN,URINE NEGATIVE (NEGATIVE); CANNABINOID SCREEN,URINE NEGATIVE (NEGATIVE); COCAINE SCREEN,URINE NEGATIVE (NEGATIVE); METHADONE SCREEN, URINE NEGATIVE (NEGATIVE); OPIATE SCREEN,URINE NEGATIVE (NEGATIVE)
[2018-02-20 11:37] LABS: PHENCYCLIDINE SCREEN,URINE NEGATIVE (NEGATIVE)
[2018-02-20 11:46] LABS: APPEARANCE,URINE CLEAR (CLEAR); BILIRUBIN,URINE NEGATIVE (NEGATIVE); GLUCOSE, URINE (UA) NEGATIVE (NEGATIVE); KETONES,URINE NEGATIVE (NEGATIVE); LEUKOCYTE ESTERASE ,URINE NEGATIVE (NEGATIVE); NITRATE,URINE NEGATIVE (NEGATIVE); OCCULT BLOOD,URINE NEGATIVE (NEGATIVE); PROTEIN,URINE NEGATIVE (NEGATIVE)
[2018-02-20] MEDS: LORazepam 1 MG TABLET PO PRN (12:25)
[2018-02-20 19:14] VITALS: BP 145/68
[2018-02-20] MEDS: TraZODone HCL 150 MG TABLET PO SCH (20:01)
[2018-02-20] MEDS: DIVALPROEX SODIUM 500 MG DR TABLET PO SCH (20:01)
[2018-02-20] MEDS: HALOPERIDOL 10 MG TABLET PO SCH (20:01)
[2018-02-21 04:35] VITALS: BP 148/68
[2018-02-21] MEDS: LORazepam 1 MG TABLET PO PRN ×2 (06:17→14:54)
[2018-02-21] MEDS: HALOPERIDOL 5 MG TABLET PO SCH (08:52)
[2018-02-21] MEDS: OMEPRAZOLE 20 MG CAPSULE PO SCH (08:52)
[2018-02-21] MEDS: BENZTROPINE MESYLATE 1 MG TABLET PO SCH ×2 (08:52→20:09)
[2018-02-21] MEDS: NICOTINE 14 MG/24 HOUR PATCH TD SCH (08:57)
[2018-02-21] MEDS: HYDROCORTISONE 1% 30 GM CREAM TP SCH ×2 (09:00→16:52)
[2018-02-21 18:00] VITALS: BP 140/70
[2018-02-21] MEDS: DIVALPROEX SODIUM 500 MG DR TABLET PO SCH (20:09)
[2018-02-21] MEDS: TraZODone HCL 150 MG TABLET PO SCH (20:09)
[2018-02-21] MEDS: HALOPERIDOL 10 MG TABLET PO SCH (20:09)
[2018-02-22] MEDS: OMEPRAZOLE 20 MG CAPSULE PO SCH (08:08)
[2018-02-22] MEDS: HALOPERIDOL 5 MG TABLET PO SCH (08:09)
[2018-02-22] MEDS: BENZTROPINE MESYLATE 1 MG TABLET PO SCH ×2 (08:10→20:29)
[2018-02-22] MEDS: NICOTINE 14 MG/24 HOUR PATCH TD SCH (08:13)
[2018-02-22] MEDS: HYDROCORTISONE 1% 30 GM CREAM TP SCH ×2 (08:14→16:53)
[2018-02-22 08:30] VITALS: BP 127/75
[2018-02-22] MEDS: LORazepam 1 MG TABLET PO PRN (16:56)
[2018-02-22 17:00] VITALS: BP 149/80
[2018-02-22] MEDS: DIVALPROEX SODIUM 500 MG DR TABLET PO SCH (20:29)
[2018-02-22] MEDS: HALOPERIDOL 10 MG TABLET PO SCH (20:29)
[2018-02-22] MEDS: TraZODone HCL 150 MG TABLET PO SCH (20:29)
[2018-02-23] MEDS: ZOLPIDEM TARTRATE 10 MG TABLET PO PRN (00:36)
[2018-02-23] MEDS: HALOPERIDOL 5 MG TABLET PO SCH (08:12)
[2018-02-23] MEDS: OMEPRAZOLE 20 MG CAPSULE PO SCH (08:13)
[2018-02-23] MEDS: BENZTROPINE MESYLATE 1 MG TABLET PO SCH ×2 (08:13→20:43)
[2018-02-23] MEDS: LORazepam 1 MG TABLET PO PRN ×3 (08:16→19:52)
[2018-02-23] MEDS: NICOTINE 14 MG/24 HOUR PATCH TD SCH (08:17)
[2018-02-23] MEDS: HYDROCORTISONE 1% 30 GM CREAM TP SCH ×2 (12:29→16:39)
[2018-02-23 16:19] VITALS: BP 134/77
[2018-02-23] MEDS: HALOPERIDOL 10 MG TABLET PO SCH (20:42)
[2018-02-23] MEDS: TraZODone HCL 150 MG TABLET PO SCH (20:42)
[2018-02-23] MEDS: DIVALPROEX SODIUM 500 MG DR TABLET PO SCH (20:43)
[2018-02-24] MEDS: OMEPRAZOLE 20 MG CAPSULE PO SCH (08:45)
[2018-02-24] MEDS: BENZTROPINE MESYLATE 1 MG TABLET PO SCH (08:45)
[2018-02-24] MEDS: HALOPERIDOL 5 MG TABLET PO SCH (08:45)
[2018-02-24 08:50] VITALS: BP 139/85
[2018-02-24] MEDS: NICOTINE 14 MG/24 HOUR PATCH TD SCH (08:50)
[2018-02-24] MEDS: MAGNESIUM HYDROXIDE SUSPENSION 30 ML UDCUP PO PRN (09:03)
[2018-02-24] MEDS: HYDROCORTISONE 1% 30 GM CREAM TP SCH ×2 (09:05→16:18)
[2018-02-24] MEDS: LORazepam 1 MG TABLET PO PRN (09:57)
[2018-02-24 16:15] VITALS: BP 143/96
[2018-02-24] MEDS ORDERED: DIVA-78 PO (16:42)
[2018-02-24] MEDS ORDERED: BENZ2TAB10 PO (16:46)
[2018-02-24] MEDS ORDERED: HALO10 PO (16:47)
[2018-02-24] MEDS ORDERED: HYDR28.45 TP (16:49)
[2018-02-24] MEDS ORDERED: OMEP20 PO (16:53)
== END 2018-02-24 17:45 | DRG 885 ==
LOC: EMS 15:39 → 3EX 21:30
DX: F25.1 Schizoaffective disorder, depressive type (principal); R45.851 Suicidal ideations; E87.1 Hypo-osmolality and hyponatremia; K86.1 Other chronic pancreatitis; Z88.8 Allergy status to other drugs, medicaments and biological substances; K21.9 Gastro-esophageal reflux disease without esophagitis; Z90.49 Acquired absence of other specified parts of digestive tract; F17.210 Nicotine dependence, cigarettes, uncomplicated; Z91.5 Personal history of self-harm; D64.9 Anemia, unspecified; I10 Essential (primary) hypertension; L40.9 Psoriasis, unspecified; Z79.899 Other long term (current) drug therapy; Y90.2 Blood alcohol level of 40-59 mg/100 ml; F10.10 Alcohol abuse, uncomplicated; Z71.41 Alcohol abuse counseling and surveillance of alcoholic; Z71.6 Tobacco abuse counseling
CPT/HCPCS: 80307; 83036; 84153; 84443; 97110; 97116; 97162; 97166; 97530; 97535; 99285; G0480